=== PATIENT | female | born 1980 | race Caucasian/White ===

== ENCOUNTER 2018-10-16 22:59 | Observation (INO) | payer SELFPAY ==
[2018-10-16] MEDS ORDERED: Ondansetron PF 4 MG/2 ML Vial ONE (23:47)
[2018-10-17] MEDS ORDERED: Promethazine HCl 25 MG/ML VIAL ONE (00:15)
[2018-10-17 00:42] LABS: Clarity Cloudy (Clear); Pregnancy Test - Urine (BHCG) Negative (Negative); Pregu Control Background? CLEAR/WHITE (CLR/WHITE); Pregu Control Bar Appear? YES (CONTROL BAR); Specific Gravity 1.026 (1.002-1.036)
[2018-10-17 00:43] LABS: Bilirubin Small (Negative); Blood, Urine Moderate (Negative); Glucose, Urine (Dipstick) Negative (Negative); Leukocyte Negative (Negative); Nitrite Negative (Negative); Protein, Urine (Dipstick) 30 mg/dL (Neg-Trace); Specific Gravity, Urine 1.015 (1.005-1.030); pH, Urine 7.5 (5.0-9.0)
[2018-10-17 00:52] LABS: Bacteria/HPF Rare-Few HPF (None Seen); Crystals/HPF 1+ AMORPH PHOS HPF (Negative); Squamous Epithelial 0-3 HPF (0-3); Transitional Epithelial 0-3 HPF (0-3); WBC/HPF 0-3 HPF (0-3)
[2018-10-17 01:59] LABS: ALT (SGPT) 20 U/L (8-55); AST (SGOT) 18 U/L (5-34); Albumin 4.3 g/dL (3.5-5.0); Alkaline Phosphatase 109 U/L (40-150); Anion Gap 15 mmol/L (10-20); BUN (Urea Nitrogen) 12 mg/dL (7.0-18.7); Bilirubin, Total 0.7 mg/dL (0.2-1.2); Calc. Creatinine Clearance 0 mL/min (70-130); Calcium 10.3 mg/dL (7.8-10.44); Carbon Dioxide 27 mmol/L (22-29); Chloride 98 mmol/L (98-107); Estimated GFR-MDRD 83; Globulin 3.7 g/dL (2.4-3.5); Glucose 104 mg/dL (70-105); Potassium 3.6 mmol/L (3.5-5.1); Sodium 136 mmol/L (136-145)
[2018-10-17 02:00] LABS: #Lymphocytes 1.4 thou/uL (1.20-3.40); #Monocytes 0.6 thou/uL (0.11-0.59); #Neutrophils 7.5 thou/uL (1.40-6.50); %Basophils 0.4 % (0.0-1.0); %Lymphocytes 14.6 % (21.0-51.0); %Monocytes 6.5 % (0.0-10.0); %Neutrophils 78.5 % (42.0-75.0); Hemoglobin 13.6 g/dL (12.0-16.0); Mean Corpuscular HGB CONC 33.3 g/dL (32.0-36.0); Mean Corpuscular Hemoglobin 30.5 pg (27.0-31.0); Mean Corpuscular Volume 91.6 fL (78.0-98.0); Mean Platelet Volume 7.9 fL (7.4-10.4); Platelet Count 298 thou/uL (130-400); RBC Distribution Width 12.2 % (11.5-14.5); Red Blood Cell (RBC) Count 4.47 mill/uL (4.20-5.40); White Blood Cell (WBC) Count 9.5 thou/uL (4.8-10.8)
[2018-10-17] MEDS ORDERED: Metoclopramide HCl 10 MG/2 ML VIAL ONE ×2 (02:16→07:15)
[2018-10-17] MEDS ORDERED: Iopamidol 370 76% 100 ML VIAL ONE (09:30)
--- NOTE | 2018-10-17 10:04 | CT ---
PRELIMINARY REPORT/[facility]/EMERGENCY AFTER HOURS PROCEDURE: EXAM: CT Abdomen and Pelvis Without Contrast EXAM DATE/TIME: 10/17/2018 2:42 AM CLINICAL HISTORY: 38 years old, female; Signs and symptoms; Nausea and vomiting; Patient HX: N/v x4 days TECHNIQUE: Imaging protocol: Axial computed tomography images of the abdomen and pelvis without contrast. Coronal and sagittal reformatted images were created and reviewed. Radiation optimization: All CT scans at this facility use at least one of these dose optimization rodney hniques: automated exposure control; mA and/or kV adjustment per patient size (includes targeted exam s where dose is matched to clinical indication); or iterative reconstruction. COMPARISON: No relevant prior studies available. FINDINGS: Mediastinum: Small hiatal hernia. ABDOMEN: Liver: No solid mass. Gallbladder and bile ducts: No calcified stones. No ductal dilation. Pancreas: No acute pathology. No ductal dilation. Spleen: No solid mass. No splenomegaly. Adrenals: No mass. Kidneys and ureters: No solid mass. No hydronephrosis. Stomach and bowel: No obstruction. No mucosal thickening. There is moderate colonic fecal retention. Appendix: No evidence of appendicitis. PELVIS: Bladder: Unremarkable as visualized. Reproductive: Unremarkable as visualized. ABDOMEN and PELVIS: Intraperitoneal space: No free air. Bones/joints: No acute fracture. No dislocation. Soft tissues: Unremarkable. Vasculature: No abdominal aortic aneurysm. Lymph nodes: No enlarged lymph nodes. IMPRESSION: Small hiatal hernia. Fecal retention. Thank you for allowing us to participate in the care of your patient. Dictated and Authenticated by: Dinorah Chino MD 10/17/2018 4:33 AM Central Time ([place] & [place]) FINAL REPORT CT ABDOMEN AND PELVIS WITH CONTRAST: Date: 10/17/[address] of the abdomen and pelvis was done for evaluation of nausea and vomiting. Axial slices were acquired, followed by coronal and sagittal reconstructions. FINDINGS: The lung bases are clear. A small hiatal hernia is noted. The liver, spleen, pancreas, gallbladder, a drenal glands, kidneys, and abdominal aorta all appeared normal. All mesenteric vessels filled off of the aorta appropriately. There is no distention of bowel, bowel wall thickening, or periintestinal inflammatory change. The ap pendix appears normal. No free air or free fluid was detected. CT of the pelvis shows no adnexal masses, fluid collections, or inflammatory changes. IMPRESSION: 1. Small hiatal hernia. 2. No acute findings otherwise. At most, the amount of fecal material in the colon may be mildly inc reased. Report in agreement with preliminary reading by Meera. POS: HOME
--- NOTE | 2018-10-17 10:05 | RAD ---
PORTABLE CHEST: Date: 10/17/18 An AP portable film at 1339 hours shows a right IJ catheter has been placed. Its tip is in the vicini ty of the distal SVC. The heart size is normal. The lungs are clear and fully inflated. There are no effusions. IMPRESSION: 1. No acute thoracic findings. 2. Adequate line placement. POS: HOME
[2018-10-17] MEDS ORDERED: Ondansetron ODT 4 MG TAB SL PRN (10:59)
[2018-10-17] MEDS ORDERED: Ondansetron PF 4 MG/2 ML Vial IVP PRN (10:59)
[2018-10-17] MEDS ORDERED: Metoclopramide HCl 10 MG/2 ML VIAL IVP PRN (11:01)
[2018-10-17] MEDS: Sodium Chloride 0.9% 1,000 ML IV SCH (14:49)
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
[2018-10-17] MEDS: Famotidine 20 MG TAB PO SCH (22:23)
[2018-10-18] MEDS: Sodium Chloride 0.9% 1,000 ML IV SCH ×2 (00:43→10:37)
[2018-10-18] MEDS: Famotidine 20 MG TAB PO SCH (09:56)
[2018-10-18] MEDS ORDERED: Acetaminophen 325 MG TAB PO PRN (10:20)
[2018-10-18 12:56] LABS: #Basophils 0.1 thou/uL (0.0-0.2); #Lymphocytes 2.3 thou/uL (1.20-3.40); #Monocytes 0.6 thou/uL (0.11-0.59); #Neutrophils 4.5 thou/uL (1.40-6.50); %Basophils 0.7 % (0.0-1.0); %Eosinophils 0.4 % (0.0-10.0); %Lymphocytes 30.3 % (21.0-51.0); %Monocytes 8.5 % (0.0-10.0); %Neutrophils 60.2 % (42.0-75.0); Hemoglobin 12.7 g/dL (12.0-16.0); Mean Corpuscular HGB CONC 32.3 g/dL (32.0-36.0); Mean Corpuscular Hemoglobin 30.1 pg (27.0-31.0); Mean Corpuscular Volume 93.1 fL (78.0-98.0); Mean Platelet Volume 7.6 fL (7.4-10.4); Platelet Count 245 thou/uL (130-400); Red Blood Cell (RBC) Count 4.22 mill/uL (4.20-5.40); White Blood Cell (WBC) Count 7.5 thou/uL (4.8-10.8)
[2018-10-18 13:14] LABS: Anion Gap 12 mmol/L (10-20); BUN (Urea Nitrogen) 7 mg/dL (7.0-18.7); Calc. Creatinine Clearance 0 mL/min (70-130); Calcium 8.9 mg/dL (7.8-10.44); Carbon Dioxide 23 mmol/L (22-29); Chloride 107 mmol/L (98-107); Estimated GFR-MDRD 88; Glucose 103 mg/dL (70-105); Potassium 3.8 mmol/L (3.5-5.1); Sodium 138 mmol/L (136-145)
[2018-10-18 14:26] VITALS: BP 115/58; TEMP 97.9
--- NOTE | 2018-10-19 01:48 | DIS ---
DATE OF ADMISSION: 10/17/2018 DATE OF DISCHARGE: 10/18/2018 ADMISSION DIAGNOSES: 1. Acute gastroenteritis. 2. Intractable vomiting with nausea. 3. Episodic intravenous drug abuse of methamphetamine. 4. Microscopic hematuria. 5. Mild intermittent asthma in adult without complication. 6. Mood disorder. 7. Seizure disorder. DISCHARGE DIAGNOSES: 1. Acute gastroenteritis. 2. Intractable vomiting with nausea. 3. Episodic intravenous drug abuse of methamphetamine. 4. Microscopic hematuria. 5. Mild intermittent asthma in adult without complication. 6. Mood disorder. 7. Seizure disorder. HISTORY AND PHYSICAL: Please see dictation from the date of admission. HOSPITAL COURSE: Ms. Stephens is a 38-year-old female with past medical history of asthma, seizure disorder, mood disorder and IV drug abuse, who presented to the emergency room with approximately 3 to 4 days of intractable nausea, vomiting, and diarrhea. She was given IV fluids and anti-emetics and was unable to tolerate oral p.o. challenge. Therefore, she was placed in observation. Her nausea improved and on the morning of discharge was able to keep down her breakfast without associated nausea or vomiting. She had CT scan of the abdomen and pelvis that was unremarkable and normal white count, renal function, lipase, urine and serum quantitative HCG , rapid strep and influenza A and B. The only study pending at the time of discharge is urine culture, which was performed for microscopic hematuria. Of note, the microscopic evaluation had no WBCs and rare bacteria, and the patient was on her menses. The patient has been afebrile throughout her hospital course and denies abdominal pain. She gave me a number to contact her if urine culture is positive; therefore, she will be discharged on a bland diet to be advanced as tolerated and instructed should nausea recur, to take in frequent sips of fluids. Prescription for ondansetron will be sent in to the local pharmacy for picking tech. She has also been advised to have a followup visit with primary care physician for urine culture results in the event that I am unable to contact her within 3 days. The patient has a history of episodic IV methamphetamine abuse. The patient reported most recent injection into the right neck region approximately 2 weeks ago but prior to that, had been clean for 18 months. She already has contact information for counseling and rehab through [facility] and agrees that she will call them first thing tomorrow and has been advised of the dangers of continued IV drug abuse. In the outpatient setting, she should be screened for HIV and hepatitis. The patient reports a history of mood disorder and previously was on Lamictal, but has been off this for over one month. Her affect and mood as well as her thought process while hospitalized were appropriate. Therefore, she has not been restarted on medication at this time and will obtain direction through [facility] or with a primary care provider. The patient with history of seizure disorder. She previously was on Tegretol ER 200 mg, 3 PO at night. She has been off this for over a month and I did not want to restart that during her hospitalization here due to her acute symptoms of nausea and vomiting. However, she has been given contact information for program eligibility and for arrangement of followup at [facility] here in [place]. She has been advised not to drive until her seizure disorder is under control. Regarding her asthma, she has rare rescue need, so no maintenance medication was started. I will send in an albuterol inhaler for her. She also has a history of tobacco abuse and has been counseled on smoking cessation. DISPOSITION: Discharged to home. CONDITION: Good. MEDICATIONS: 1. Ondansetron 8 mg p.o. q.8 hours p.r.n. nausea and vomiting. 2. Albuterol HFA 2 puffs q.4 hours p.r.n. wheezing and shortness of breath. FOLLOWUP: Followup will be in the outpatient setting in approximately 3 days. In addition, she is to call [facility] to secure psychiatry, counseling, and rehab options. Job ID: [id number] [facility]
== END 2018-10-18 15:00 | disposition home or self-care (01) ==
LOC: BURERS 22:59 → BURMED 10-17 07:51
PROVIDERS: ADMIT Family Medicine; ATTEND Family Medicine
DX: K52.9 Noninfective gastroenteritis and colitis, unspecified (principal); F15.10 Other stimulant abuse, uncomplicated; R31.29 Other microscopic hematuria; J06.9 Acute upper respiratory infection, unspecified; G40.909 Epilepsy, unspecified, not intractable, without status epilepticus; F41.9 Anxiety disorder, unspecified; F32.9 Major depressive disorder, single episode, unspecified; J45.909 Unspecified asthma, uncomplicated; F17.210 Nicotine dependence, cigarettes, uncomplicated; K44.9 Diaphragmatic hernia without obstruction or gangrene; J45.20 Mild intermittent asthma, uncomplicated; Z88.5 Allergy status to narcotic agent
CPT/HCPCS: 36556; 71045; 74177; 80048; 80053; 81003; 81015; 81025; 83605; 83690; 84702; 85025; 87081; 87086; 87430; 87804; 96361; 96372; 96374; 96375; 96376; A4353; G0378; J2405; J2550; J2765; Q9967